=== PATIENT | female | born 1965 | race Caucasian/White ===

== ENCOUNTER 2016-09-03 05:19 | Day surgery (SDC) | payer OTHER ==
[~2016-09-03] VITALS: Ht 165.1 cm; Wt 75.0 kg
[~2016-09-03 05:19] MED LIST: DOXYCYCLINE HYC50 M1 PO; IBUPROFEN400 MG PO; LOSARTAN-HCTZ1 EAC1 PO; NAPROSYN500 MG PO; PROAIR HFA8.5 GM IH
[2016-09-03 05:55] VITALS: BP 130/64
[2016-09-03 11:11] VITALS: BP 123/80
[2016-09-03 12:31] VITALS: BP 113/60
== END 2016-09-03 12:47 | disposition home or self-care (01) ==
LOC: SDC 05:19
PROC: 0HBU0ZZ Excision of Left Breast, Open Approach (ICD-10-PCS; principal; 2016-09-03)
DX: N60.12 Diffuse cystic mastopathy of left breast (principal); Z80.3 Family history of malignant neoplasm of breast; I10 Essential (primary) hypertension; J45.20 Mild intermittent asthma, uncomplicated; Z83.3 Family history of diabetes mellitus; Z82.49 Family history of ischemic heart disease and other diseases of the circulatory system
CPT/HCPCS: 88307; J0690; J1100; J2250; J2405; J3010; S0020